=== PATIENT | male | born 1935 | race Caucasian/White ===

== ENCOUNTER 2016-11-19 14:23 | Emergency (ER) | payer MEDICARE, BC ==
[2016-11-19 15:00] LABS: Hematocrit 33.4 % (42.0-52.0); Hemoglobin 11.3 gm/dL (13.5-18.0); Mean Cell Volume 95.4 fl (78-100); Mean Corpuscular Hemoglobin 32.3 pg (27-31); Mean Corpuscular Hgb Conc 33.8 g/dl (32-36); Mean Platelet Volume 9.6 fl (6.0-9.5); Neutrophil # 4.9 K/mm3 (1.3-6.0); Neutrophil % 69.6 % (42-75.0); Platelet Count 194 K/mm3 (150-450)
[2016-11-19 15:10] LABS: INR 0.99 INR (0.90-1.10); Prothrombin Time (Patient) 10.3 Seconds (9.4-11.4)
[2016-11-19 15:13] LABS: Albumin * 3.6 gm/dl (3.4-5.0); Anion Gap 12.3 mmol/L (6.8-13.8); BUN/Creatinine Ratio 18.8 (9.0-21.6); Bilirubin, Total 0.6 mg/dL (0.0-1.1); Ca. Corrected For Albumin 8.9 mg/dL (8.4-10.2); Calcium * 8.9 mg/dL (7.9-10.9); Carbon Dioxide 29.7 mmol/L (24-32.6); Total Protein 7.2 gm/dL (6.2-8.2)
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
[2016-11-19 15:59] VITALS: BP 121/74
== END 2016-11-19 16:31 | disposition home or self-care (01) ==
LOC: ER 14:23
DX: H53.8 Other visual disturbances (principal); Z87.891 Personal history of nicotine dependence

== ENCOUNTER 2020-10-08 13:43 | Observation (INO) ==
[2020-10-08 14:43] LABS: Hematocrit 38.9 % (42.0-52.0); Hemoglobin 12.4 gm/dL (13.5-18.0); Mean Cell Volume 99.5 fl (78-100); Mean Corpuscular Hemoglobin 31.7 pg (27-31); Mean Corpuscular Hgb Conc 31.9 g/dl (32-36); Mean Platelet Volume 10.5 fl (8-11.3); Platelet Count 198 K/mm3 (150-450); Red Blood Count 3.91 M/mm3 (4.7-6.0); Red Cell Distribution Width 15.5 % (11.5-14.0); White Blood Count 8.4 K/mm3 (4.0-10.5)
[2020-10-08 14:56] LABS: Total Cells Counted 100
[2020-10-08 15:00] LABS: Albumin * 3.6 gm/dl (3.4-5.0); Anion Gap 14.1 mmol/L (6.8-13.8); BUN/Creatinine Ratio 19.8 (9.0-21.6); Bilirubin, Total 0.6 mg/dL (0.0-1.1); Ca. Corrected For Albumin 9.4 mg/dL (8.4-10.2); Calcium * 9.4 mg/dL (7.9-10.9); Carbon Dioxide 28.2 mmol/L (24-32.6); Potassium 4.3 mmol/L (3.4-4.6); Total Protein 7.2 gm/dL (6.2-8.2)
[2020-10-08 15:17] LABS: Lymphocyte 4 % (20-51); Monocyte 2 % (0-9); Neutrophil 94 % (42-75); Neutrophil # 7.9 K/mm3 (1.3-6.0)
[2020-10-08 15:19] LABS: Hypochromia Trace; Platelet Estimate Normal (NORMAL)
[2020-10-08] MEDS ORDERED: FUROSEMIDE 10 MG/ML VIAL IV ONE (15:21)
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
[2020-10-08 17:01] LABS: Prothrombin Time (Patient) 10.7 Seconds (9.1-10.7)
[2020-10-08 17:03] LABS: INR 1.03 INR (0.92-1.08); Partial Thrombolplastin Time 22.9 Seconds (24-32)
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
[2020-10-08] MEDS: METOPROLOL TARTRATE 50 MG TABLET PO SCH (20:44)
[2020-10-08] MEDS ORDERED: APIXABAN 5 MG TABLET PO SCH (21:00)
[2020-10-09 06:42] LABS: Albumin * 3.5 gm/dl (3.4-5.0); Anion Gap 8.4 mmol/L (6.8-13.8); BUN/Creatinine Ratio 22.9 (9.0-21.6); Bilirubin, Total 0.4 mg/dL (0.0-1.1); Ca. Corrected For Albumin 9.4 mg/dL (8.4-10.2); Calcium * 9.3 mg/dL (7.9-10.9); Potassium 3.4 mmol/L (3.4-4.6); Total Protein 7.1 gm/dL (6.2-8.2)
[2020-10-09] MEDS: METOPROLOL TARTRATE 50 MG TABLET PO SCH (08:43)
--- NOTE | 2020-10-09 08:56 | DS ---
(1) Acute on chronic diastolic CHF (congestive heart failure) Problem: Resolved (2) CKD (chronic kidney disease) stage 3, GFR 30-59 ml/min Problem: Chronic Qualifiers: Chronic kidney disease stage 3 subtype: stage 3b (GFR 30-44) Qualified Code(s): N18.32 - Chronic kidney disease, stage 3b Date of Discharge:: 10/09/20 Hospital Course: Shawn was admitted due to new interstitial edema on chest xray and a bump in his creatinine from 1.7 to 2.0. He was overall asymptomatic. He was give IV lasix 80mg in the ER and admitted to monitor renal function. Renal function this morning is stable and he has had no respiratory change. He feels well and ready to go home. Will discharge to home. He may continue oral diuretics and follow up with Dr. Flores as outpatient. Procedures Performed: none Results and Findings: Lab Pending Results 10/08/20 14:36: WBC 8.4, RBC 3.91 L, Hgb 12.4 L, Hct 38.9 L, MCV 99.5, MCH 31.7 H, MCHC 31.9 L, RDW 15.5 H, Plt Count 198, MPV 10.5, Neutrophils % (Manual) 94 H, Lymphocytes % (Manual) 4 L, Monocytes % (Manual) 2, Neutrophils # (Manual) 7.9 H, Lymphocytes # (Manual) 0.3 L, Monocytes # (Manual) 0.2, Platelet Estimate Normal, Hypochromasia Trace 10/08/20 14:36: Sodium 141, Plasma Sodium 142, Potassium 4.3, Chloride 103, Carbon Dioxide 28.2, Anion Gap 14.1 H, BUN 40 H, Creatinine 2.02 H, Est GFR (Non-Af Amer) 33 L, BUN/Creatinine Ratio 19.8, Random Glucose 179 H D, Calcium 9.4, Calcium Adj for Albumin 9.4, Total Bilirubin 0.6, AST 17, ALT 35, Alkaline Phosphatase 88, B-Natriuretic Peptide 2198 H, Total Protein 7.2, Albumin 3.6 10/08/20 14:36: Troponin I Less than 0.017 10/08/20 15:21: SARS-CoV-2 (PCR) Not detected 10/08/20 16:33: PT 10.7, INR (Anticoag Therapy) 1.03, PTT ([place]) 22.9 L 10/09/20 06:26: Sodium 140, Plasma Sodium 140, Potassium 3.4 D, Chloride 101, Carbon Dioxide 34.0 H, Anion Gap 8.4, BUN 46 H, Creatinine 2.01 H, Est GFR (Non- Af Amer) 34 L, BUN/Creatinine Ratio 22.9 H, Random Glucose 113 H D, Calcium 9.3, Calcium Adj for Albumin 9.4, Total Bilirubin 0.4, AST 12, ALT 33, Alkaline Phosphatase 86, Total Protein 7.1, Albumin 3.5 Discharge Location: Home Disposition: Home self-care Condition: Fair Discharge Activity: Activity as tolerated Discharge Diet: Low salt Referrals: Russell Flores MD [Primary Care Provider] - One Week Problem Oriented Discharge Instructions to Patient/Family: CHF Patient Instructions Additional Patient Instructions (free text): No changes were made to medications at this time. Fluid status appears to be stable. Complete Home Medications List: Complete Home Medication List: Docusate Sodium 100 mg PO DAILY 11/19/16 oxygen-air delivery systems See Dose Instructions .ROUTE .MEDSUPPLY #1 11/14/17 Durable Medical Equipment See Dose Instructions .ROUTE .MEDSUPPLY #1 ea 05/25/18 aspirin 81 mg chewable tablet 81 mg PO DAILY #90 tab 06/11/20 calcium polycarbophil 625 mg tablet 625 mg PO DAILY #90 tab 06/11/20 cholecalciferol (vitamin D3) 125 mcg (5,000 unit) tablet 5,000 unit PO DAILY #90 tab 06/11/20 ferrous sulfate 325 mg (65 mg iron) tablet 325 mg PO DAILY #90 tab 06/11/20 losartan 50 mg tablet 50 mg PO DAILY #90 tab 06/11/20 omeprazole 40 mg capsule,delayed release 40 mg PO DAILY #90 cap 06/11/20 vitamin B complex 1 tab PO DAILY #90 tab 06/11/20 allopurinol 300 mg tablet 300 mg PO DAILY #90 tab 06/18/20 apixaban 5 mg tablet 2.5 mg PO BID #90 tab 06/18/20 Durable Medical Equipment See Rx Instructions .MEDSUPPLY #1 ea 09/10/20 furosemide 40 mg tablet 80 mg PO DAILY #135 tab 10/07/20 glipizide 10 mg tablet, extended release 24 hr 10 mg PO DAILY #90 tab 10/07/20 metolazone 5 mg tablet 5 mg PO DAILY #10 tab 10/07/20 potassium chloride 10 mEq tablet,extended release 10 meq PO DAILY #90 tab 10/07/20 Atorvastatin Calcium 40 mg PO DAILY 10/08/20 Metoprolol Tartrate [Lopressor] 50 mg PO BID 10/08/20 predniSONE [Prednisone] 10 mg PO DAILY 10/08/20 Forms: Patient Portal Registration
[2020-10-09] MEDS ORDERED: FERROUS SULFATE 325 MG TABLET PO SCH (09:00)
[2020-10-09] MEDS ORDERED: POTASSIUM CHLORIDE 10 MEQ TABLET.SA PO SCH (09:00)
[2020-10-09] MEDS ORDERED: LOSARTAN POTASSIUM 50 MG TABLET PO SCH (09:00)
[2020-10-09] MEDS ORDERED: glipiZIDE 5 MG TAB.SR.24H PO SCH (09:00)
[2020-10-09] MEDS ORDERED: PANTOPRAZOLE SODIUM 40 MG TABLET.EC PO SCH (09:00)
[2020-10-09] MEDS ORDERED: DOCUSATE SODIUM 100 MG CAPSULE PO SCH (09:00)
[2020-10-09] MEDS ORDERED: predniSONE 5 MG TABLET PO SCH (09:00)
[2020-10-09] MEDS ORDERED: ALLOPURINOL 300 MG TABLET PO SCH (09:00)
[2020-10-09] MEDS ORDERED: APIXABAN 2.5 MG TABLET PO SCH (09:00)
[2020-10-09] MEDS ORDERED: ASPIRIN 81 MG TAB.CHEW PO SCH (09:00)
[2020-10-09] MEDS ORDERED: OMEPRAZOLE 20 MG CAPSULE.SA PO SCH (09:00)
[2020-10-09] MEDS ORDERED: predniSONE 10 MG TABLET PO SCH (09:00)
[2020-10-09 09:57] VITALS: BP 139/73
== END 2020-10-09 11:35 | disposition home or self-care (01) ==
LOC: MS 13:43 → ER 13:43 → MS 16:53
PROVIDERS: ADMIT Family Medicine; ATTEND Family Medicine